=== PATIENT | male | born 1985 | race Caucasian/White ===

== ENCOUNTER 2020-08-19 10:41 | Emergency (ER) | payer OTHER, SELFPAY ==
[2020-08-19 10:47] VITALS: PULSE 66; RESP 14; TEMP 36.6; O2SAT 99
--- NOTE | 2020-08-19 13:32 | ED.URI ---
HPI - URI/Sore Throat General Chief Complaint: Upper Respiratory Symptoms Stated Complaint: INFLAMED TONSILS, STONES Time Seen by Provider: 08/19/20 13:20 Source: patient Mode of arrival: Ambulatory Limitations: no limitations History of Present Illness HPI Narrative: 35-year-old gentleman with some mild tonsillar/throat irritation more on the left than the right. Has a history of seasonal allergies and no other significant medical issues. He talked to his consultation nurse from his insurance plan recommended evaluation in the emergency department. He does have a history of tonsillar stones and was worried that this might be a complication of tonsillar stones or infection. He describes no fevers, cough, chills, chest pain, wheezing he does note moderate postnasal drip. He is found with Flonase spray in the past he developed sinus headaches and he seems to do better with Zyrtec orally. Related Data Home Medications Medication Instructions Recorded Confirmed No Known Home Medications 08/19/20 08/19/20 Allergies Allergy/AdvReac Type Severity Reaction Status Date / Time No Known Drug Allergies Allergy Verified 08/19/20 10:50 Review of Systems Review of Systems Narrative: Remainder of complete review of systems is otherwise unremarkable except for that included in the HPI. Patient History Medical History (Updated 08/19/20 @ 13:36 by Nuria Longoria MD) Allergic rhinitis with postnasal drip Social History Smoking Status: Never smoker Smoking Status: Never smoker alcohol intake frequency: 0-2 drinks per day Substance Use Type: does not use Exam Narrative Exam Narrative: General: Alert appropriate in no acute distress HEENT: Mildly irritated tonsils bilaterally with minor small stones appreciated in tonsillar pits and posterior cobblestoning. Has no cervical adenopathy Chest is completely clear auscultation Respiratory: Able to speak in full sentences, no obvious respiratory distress Skin: No obvious rashes, warm and dry Neurologic: Grossly intact no obvious asymmetries or abnormalities Psych: appropriate insight and affect, cooperative Initial Vital Signs Initial Vital Signs: Vital Signs Temperature 97.9 F 08/19/20 10:47 Pulse Rate 66 08/19/20 10:47 Respiratory Rate 14 08/19/20 10:47 Pulse Oximetry 99 08/19/20 10:47 Course Vital Signs Vital signs: Vital Signs - 8 hr 08/19/20 10:47 Temperature 97.9 F Pulse Rate 66 Respiratory Rate 14 Pulse Oximetry 99 MDM - URI/Sore Throat MDM Narrative Medical decision making narrative: Otherwise healthy 35-year-old gentleman presents with some irritation in the posterior pharynx. He has mm size tonsillar stones that are not causing any problems, no evidence of bacterial or viral infection, he does have posterior cobblestoning that together with his symptoms is most consistent with allergic rhinitis. He is reassured and discharged home. Discharge Plan Departure Patient Disposition: Home Clinical Impression: Allergic rhinitis with postnasal drip, Calculus of tonsil Instructions: Allergic Rhinitis Activity Restrictions/Additional Instructions: Thank you for coming in today Your tonsils are mildly inflamed however the back part of your throat is more inflamed which is entirely consistent with postnasal drip from seasonal allergies. You do have some small tonsillar stones but these do not appear to be causing any problems for you today. There is no evidence of infection, peritonsillar abscess for acute viral or bacterial infections. Do continue to use your Zyrtec I hope you feel better Prescriptions: No Action No Known Home Medications RF: 0
== END 2020-08-19 14:00 | disposition home or self-care (01) ==
PROVIDERS: Emergency Provider Emergency Medicine
DX: J30.9 Allergic rhinitis, unspecified (principal); J35.8 Other chronic diseases of tonsils and adenoids
CPT/HCPCS: 99281